=== PATIENT | male | born 1935 | race Caucasian/White ===

== ENCOUNTER 2016-08-27 15:11 | Emergency (ER) | payer MEDICARE ==
[2016-08-27] MEDS ORDERED: Bicillin LA 1.2 MILLION UNITS/2 ML SYRINGE ONE (16:10)
--- NOTE | 2016-08-27 16:10 | RAD ---
CHEST TWO VIEWS 08/27/16 HISTORY: Cough. COMPARISON: 04/15/16 FINDINGS: The cardiac silhouette is enlarged. Pulmonary vasculature remains slightly engorged. Mediastinum is midline with aortic calcification. Lungs are hyperinflated. Scarring at the right mid chest and at e ach lung base is similar in appearance to the prior study. There is no confluent air space consolida tion, pneumothorax or pleural fluid evident. IMPRESSION: 1. COPD. 2. Atherosclerosis. 3. Cardiomegaly. POS: RONNI
--- NOTE | 2016-08-27 16:18 | ERRECORD ---
[facility] EMERGENCY RECORD HPI GENERAL (15:59 ABUS) CHIEF COMPLAINT: Patient presents for evaluation of Sinus drainage. HISTORIAN: History provided by patient, 80 yr old M with PMH of Aflutter, HLD, HTN, KARY, GERD, Chronic Resp Failure on home O2 2-3 L per NC who comes in at the recommendation of his doctor for sinus drainage. He denies any F, N/V, D, rash, swelling, edeam, CP, CT, SOB. MECHANISM OF INJURY: Unknown mechanism. LOCATION: Symptoms are localized, most severe to Sinus. QUALITY: Pain is dull in nature, described as aching. SEVERITY: Currently symptoms are mild, Current severity of pain rated as 0/10. TIME COURSE: Gradual onset of symptoms, 2, days priror to arrival, There has been no change in the patient's symptoms over time. ASSOCIATED WITH: No associated symptoms. EXACERBATED BY: Patient's condition exacerbated by nothing. RELIEVED BY: Patient's condition relieved by nothing. ROS (16:01 ABUS) CONSTITUTIONAL: Negative constitutional review of systems, Historian denies chills, denies fever. ENT: Historian reports rhinorrhea, reports sinus pain, denies sore throat. CARDIOVASCULAR: Negative cardiovascular review of systems, Historian denies chest pain, denies palpitations. RESPIRATORY: Negative respiratory review of systems, Historian denies cough, denies shortness of breath. GI: Negative gastrointestinal review of systems, Historian denies abdominal pain, denies constipation, denies diarrhea, denies nausea, denies vomiting. MUSCULOSKELETAL: Negative musculoskeletal review of systems, Historian denies back pain, denies fall, denies injury, denies neck pain. SKIN: Negative skin review of systems, Historian denies rash, denies skin changes. NEUROLOGIC: Negative neurologic review of systems, Historian denies headache. PAST MEDICAL HISTORY (15:28 [facility]) MEDICAL HISTORY: Flu vaccine up to date, Tetanus immunization up to date, Pneumococcal vaccine up to date, Past medical history includes cardiac history, arrhythmia, A-FLUTTER, Past medical history includes history of hyperlipidemia, history of hypertension. PLEURAL EFFUSIONS, ANEMIA- IRON DEFECIENCY., Past medical history includes history of hypertension, which has been treated, Patient is compliant. HEARING &a-1R&a+25V*p+0X*x2475O*c202B*c15G*c2P*p-0X&a-25V&a+1R Name: Lee Gomez : 1935 M80 MedRec: [id number] AcctNum: [id number] Prepared: TueAug 27, 2016 16:34 by Interface Page 1 of 3 pMD [facility] EMERGENCY RECORD LOSS-BILATERAL, CHRONIC RESP FAILURE WTIH HYPOXIA, COPD, GERD, B-12 DEFICIENCY, ABD HERNIA, DIZZINESS, DEMENTIA, CHF. MALE SURGICAL HISTORY: LEFT SALIVA GLAND REMOVAL, RIGHT THORACIC SURGERY. PSYCHIATRIC HISTORY: No previous psychiatric history. SOCIAL HISTORY: Social History includes lives with , Patient denies alcohol use, Patient denies drug use, Patient is a former tobacco user. KNOWN ALLERGIES NKDA No Known Drug Allergies (Unconfirmed) CURRENT MEDICATIONS (15:25 CJEF) Unknown VITAL SIGNS VITAL SIGNS: BP: 99/51, Pulse: 69, Resp: 18, Temp: 97.8 (Tympanic), Pain: 0, O2 sat: 90 on 2L Oxygen, Time: 08/27/2016 15:21. (15:21 CJEF) BP: 97/64, Pulse: 64, Resp: 20, Pain: 0, O2 sat: 97 on 2L Oxygen, Time: 08/27/2016 15:39. (15:39 CJEF) BP: 102/57, Pulse: 65, Resp: 18, O2 sat: 97 on 2L Oxygen, Time: 08/27/2016 16:08. (16:08 CJEF) Temp: 97.3 (Tympanic), Pain: 0, Time: 08/27/2016 16:15. (16:15 CJEF) PHYSICAL EXAM (16:01 ABUS) CONSTITUTIONAL: Vital signs reviewed, Patient afebrile, Pulse normal, Blood pressure normal, Respiratory rate normal, Patient appears non toxic, Patient appears pain free, Patient alert and oriented to person, place and time. NECK: Neck exam normal, Neck exam included findings of normal range of motion, Trachea midline, no meningeal signs, no cervical adenopathy, no tenderness. RESPIRATORY CHEST: Respiratory and chest exam normal, Respiratory exam included findings of no respiratory distress, Breath sounds clear. CARDIOVASCULAR: Cardiovascular assessment normal, Cardiovascular exam included findings of heart rate regular rate and rhythm, Heart sounds normal. ABDOMEN MALE: Abdominal exam included findings of abdomen nontender, Bowel sounds normal, no distension, no mass, no pulsatile masses, no peritoneal signs, no rigidity, no guarding, no rebound, Rovsing's sign absent. BACK: Back exam normal, Back exam included findings of normal inspection, range of motion normal, no tenderness. NEURO: Neuro exam normal, Neuro exam findings include patient oriented to person, place and time, Speech normal, Gait normal. SKIN: Skin exam normal, Skin exam included findings of skin warm, dry, and normal in color, no rash. &a-1R&a+25V*p+0X*s8515L*c202B*c15G*c2P*p-0X&a-25V&a+1R Name: Lee Gomez : 1935 M80 MedRec: [id number] AcctNum: [id number] Prepared: TueAug 27, 2016 16:34 by Interface Page 2 of 3 pMD [facility] EMERGENCY RECORD RADIOLOGYINTERPRETATION (16:11 ABUS) CHEST: Chest films negative, no infiltrates, no pneumothorax, no hemothorax, no masses, no cardiomegaly, no effusion, no free air. HEALTHCARE ADMINISTRATION INTERNSHIP: Preliminary review of x-rays by, ED Physician, Radiologist. MEDICATION ADMINISTRATION SUMMARY Drug Name: Bicillin L-A, Dose Ordered: 1.2 million units, Route: Intramuscular, Status: Given, Time: 16:13 08/27/2016, Detailed record available in Medication Service section. DOCTOR NOTES (16:02 ABUS) TEXT: 80 yr old M with PMH of Aflutter, HLD, HTN, KARY, GERD, Chronic Resp Failure on home O2 2-3 L per NC who comes in at the recommendation of his doctor for sinus drainage. Exam: Afebrile and BP is similar o value in last note of 2016 on admission. NAD. Dx: Sinusitis, allergic rhinitis, pharyngitis, viral URI, CAP Plan: CXR. Dispo: D/c home with return precautions. PROBLEM LIST No recorded problems DIAGNOSIS (16:10 ABUS) FINAL: PRIMARY: ACUTE SINUSITIS UNSPECIFIED, ADDITIONAL: URI. PRESCRIPTION No recorded prescriptions DISPOSITION PATIENT: Disposition Type: Discharge, Disposition: *Discharge Home, Condition: Good. (16:10 ABUS) Patient left the department. (16:31 CJ) Rao: SCOTT=MD Nhan, Andres CJEF=FARZANEH Oro, Leatha &a-1R&a+25V*p+0X*[id number]*c202B*c15G*c2P*p-0X&a-25V&a+1R Name: Lee Gomez : 1935 M80 MedRec: [id number] AcctNum: [id number] Prepared: TueAug 27, 2016 16:34 by Interface Page 3 of 3 pMD MTDD
--- NOTE | 2016-08-27 16:22 | PICIS ---
[facility] EMERGENCY RECORD TRIAGE (15:24 CJEF) TRIAGE NOTES: PT REPORTS CONGESTION AND YELLOW MUCUS DISCHARGE WHEN BLOWING HIS NOSE. PT DENIES ANY OTHER SYMTOMS. PT VERY HARD OF HEARING. PT REPORTS THAT HE CALLED HIS HOME HEALTH AND TOLD THEM ABOUT THE DISCHARGE, IN WHICH THEY TOLD HIM TO COME TO THE ER,. (15:24 CJEF) PATIENT: NAME: Lee Gomez, AGE: 80, GENDER: male, : Tue1935, TIME OF GREET: TueAug 27, 2016 15:12, PREFERRED LANGUAGE: Moldovan, ETHNICITY: Not or , ECODE BILLING MAP: [facility], SSN: [id number], Zip Code: [address], KG WEIGHT: 74.84, PHONE: , , , PERSON ID: [id number], PCP: MD Torres Nanette. (15:24 CJEF) COMPLAINT: COUGHING UP MUCUS. (15:24 CJEF) ADMISSION: URGENCY: 4 Non Urgent, ADMISSION SOURCE: Home, TRANSPORT: Walk-in, BED: ED -02. (15:24 CJEF) ASSESSMENT: Assessment: YELLOW DISCHARGE WHEN BLOWING NOSE. (15:28 CJEF) PAIN: No complaint of pain. (15:28 CJEF) IMMUNIZATIONS: Flu vaccine up to date, Tetanus immunization up to date, Pneumococcal vaccine up to date. (15:28 CJEF) SIRS SCORING: Heart Rate 55-109 (0), Temp range 96.8-101.1 (0), respiratory rate 12-24 (0), Mental Status altered: no (0), Yes, Infection or Suspected Infection. (15:28 CJEF) SIRS NOTIFICATION: Yes, Infection or Suspected Infection. (15:28 CJEF) TRIAGE SCREENING: Patient denies suicidal ideation, Patient denies presence of domestic violence. (15:28 CJEF) PROVIDERS: TRIAGE NURSE: Leatha Oro RN. (15:24 CJEF) VITAL SIGNS: BP 99/51, Pulse 69, Resp 18, Temp 97.8, (Tympanic), Pain 0, O2 Sat 90, on 2L Oxygen, Time 08/27/2016 15:21. (15:21 CJEF) PREVIOUS VISIT ALLERGIES: NKDA. (15:24 CJEF) NKDA. (15:28 CJEF) KNOWN ALLERGIES NKDA No Known Drug Allergies (Unconfirmed) CURRENT MEDICATIONS (15:25 CJEF) Unknown VITAL SIGNS VITAL SIGNS: BP: 99/51, Pulse: 69, Resp: 18, Temp: 97.8 (Tympanic), Pain: 0, O2 sat: 90 on 2L Oxygen, Time: 08/27/2016 15:21. (15:21 CJEF) BP: 97/64, Pulse: 64, Resp: 20, Pain: 0, O2 sat: 97 on 2L Oxygen, Time: 08/27/2016 15:39. (15:39 CJEF) BP: 102/57, Pulse: 65, Resp: 18, O2 sat: 97 on 2L Oxygen, Time: 08/27/2016 16:08. (16:08 CJEF) Temp: 97.3 (Tympanic), Pain: 0, Time: 08/27/2016 16:15. (16:15 CJEF) &a-1R&a+25V*p+0X*q3747P*c202B*c15G*c2P*p-0X&a-25V&a+1R Name: Lee Gomez : 1935 M80 MedRec: [id number] AcctNum: [id number] Prepared: TueAug 27, 2016 16:40 by Interface Page 1 of 7 pMD [facility] EMERGENCY RECORD NURSING ASSESSMENT: ENT (15:37 CJEF) CONSTITUTIONAL: Complex assessment performed, Patient arrives ambulatory, Unsteady gait, Assistance to cart, History obtained from patient, Patient appears comfortable, Patient cooperative, Patient alert, Oriented to person, place and time, Skin warm, Skin dry, Skin normal in color, Mucous membranes pink, Mucous membranes moist, Patient is well-groomed, PT REPORTS CONGESTION AND YELLOW MUCUS DISCHARGE WHEN BLOWING HIS NOSE. PT DENIES ANY OTHER SYMTOMS. PT VERY HARD OF HEARING. PT REPORTS THAT HE CALLED HIS HOME HEALTH AND TOLD THEM ABOUT THE DISCHARGE, IN WHICH THEY TOLD HIM TO COME TO THE ER. PT ON OXYGEN AT HOME AT 2LPM AND CAME TO ER WITH HIS PORTABLE TANK. PAIN: Patient rates pain as 0 out of 10. ENT: Ear assessment findings include ear normal to inspection, Nasal assessment findings include nose normal to inspection, Congestion, bilaterally, Mouth and throat assessment findings include mouth inspection normal, Notes: PT REPORTS BLOWING HIS NOSE AND EXPELLING YELLOW DISCHARGE. RESPIRATORY/CHEST: Lungs auscultated, Breath sounds with wheezing, scattered, Respiratory assessment findings include respiratory effort easy, Respirations regular, Conversing normally, Neck and chest exam findings include trachea midline, Chest expansion equal, Chest movement symmetrical, Associated with cough, productive of, yellow sputum. NOTES: Patient tolerated procedure well. SAFETY: Side rails up, Cart/Stretcher in lowest position, Family at bedside, Call light within reach, Hospital ID band on. NURSING PROCEDURE: HEAD ESTHETICIAN (15:39 [facility]) PATIENT IDENTIFIER: Patient actively involved in identification process, Patient's identity verified by patient stating name, Patient's identity verified by patient stating date. HEAD ESTHETICIAN: Patient placed on ship boss, Heart rate: 66, showing normal sinus rhythm, Patient placed on non-invasive blood pressure monitor, Patient placed on continuous pulse oximetry, Adult/pediatric oxisensor applied. FOLLOW-UP: After procedure, alarms set and on, After procedure, patient tolerating monitoring. NOTES: Patient tolerated procedure well. SAFETY: Side rails up, Cart/Stretcher in lowest position, Family at bedside, Call light within reach, Hospital ID band on. NURSING PROCEDURE: DISCHARGE NOTE (16:31 [facility]) DISCHARGE: Patient discharged to home, ambulating without assistance, driving self, unaccompanied, Summary of Care printed/ provided, Patient requested and was provided an electronic copy of Discharge Instructions, Transition record given to patient, Discharge instructions given to patient, Simple or moderate discharge teaching performed, Medication reconciliation form given, Above person(s) &a-1R&a+25V*p+0X*u3300I*c202B*c15G*c2P*p-0X&a-25V&a+1R Name: Lee Gomez : 1935 M80 MedRec: [id number] AcctNum: [id number] Prepared: TueAug 27, 2016 16:40 by Interface Page 2 of 7 pMD [facility] EMERGENCY RECORD verbalized understanding of discharge instructions and follow-up care, Patient treated and evaluated by physician. BELONGINGS: Belongings remain with patient. NOTES: Patient tolerated procedure well. SAFETY: Side rails up, Cart/Stretcher in lowest position, Family at bedside, Call light within reach, Hospital ID band on. NURSING PROCEDURE: NURSE NOTES NURSES NOTES: Patient in no apparent distress, Patient resting quietly, Warm blanket given to patient. (15:40 CJEF) Patient in no apparent distress, Patient resting quietly, Notes: PT RESTING IN BED QUIETLY WITH NO DISTRESS NOTED. PT DENIES ANY NEEDS. (16:15 [facility]) ORDER DETAILS Order Name: XR Chest Pa & Lat STANDARD, Status: Active, Time: 15:36 08/27/2016, User: [facility], - Ordered for: MD Nhan, Andres, - Entered by: FARZANEH Oro Cassie - TueAug 27, 2016 15:36, - Quantity: 1. MEDICATION ADMINISTRATION SUMMARY Drug Name: Bicillin L-A, Dose Ordered: 1.2 million units, Route: Intramuscular, Status: Given, Time: 16:13 08/27/2016, Detailed record available in Medication Service section. MEDICATION SERVICE Bicillin L-A: Order: Bicillin L-A (penicillin G benzathine) - Dose: 1.2 million units : Intramuscular Schedule: Now Ordered by: Andres Justin MD Entered by: Andres Justin MD TueAug 27, 2016 16:09 Documented as given by: Leatha Oro RN TueAug 27, 2016 16:13 Patient, Medication, Dose, Route and Time verified prior to administration. IM antibiotic, Amount given: 1.2 MIL, Medication administered to right buttock, Patient appears Awake and alert- acceptable, Correct patient, time, route, dose and medication confirmed prior to administration, Patient advised of actions and side-effects prior to administration, Allergies confirmed and medications reviewed prior to administration, Patient tolerated procedure well, Patient in position of comfort, Side rails up, Cart in lowest position, Family at bedside. : Follow Up : Response assessment performed, No signs or symptoms of allergic reaction noted, Advised not to ambulate without assistance, Patient in position of comfort, Side rails up, Cart in lowest position, Family at bedside. (16:25 [facility]) &a-1R&a+25V*p+0X*t8631Z*c202B*c15G*c2P*p-0X&a-25V&a+1R Name: Lee Gomez : 1935 M80 MedRec: [id number] AcctNum: [id number] Prepared: TueAug 27, 2016 16:40 by Interface Page 3 of 7 pMD [facility] EMERGENCY RECORD HPI GENERAL (15:59 ABUS) CHIEF COMPLAINT: Patient presents for evaluation of Sinus drainage. HISTORIAN: History provided by patient, 80 yr old M with PMH of Aflutter, HLD, HTN, KARY, GERD, Chronic Resp Failure on home O2 2-3 L per NC who comes in at the recommendation of his doctor for sinus drainage. He denies any F, N/V, D, rash, swelling, edeam, CP, CT, SOB. MECHANISM OF INJURY: Unknown mechanism. LOCATION: Symptoms are localized, most severe to Sinus. QUALITY: Pain is dull in nature, described as aching. SEVERITY: Currently symptoms are mild, Current severity of pain rated as 0/10. TIME COURSE: Gradual onset of symptoms, 2, days priror to arrival, There has been no change in the patient's symptoms over time. ASSOCIATED WITH: No associated symptoms. EXACERBATED BY: Patient's condition exacerbated by nothing. RELIEVED BY: Patient's condition relieved by nothing. ROS (16:01 ABUS) CONSTITUTIONAL: Negative constitutional review of systems, Historian denies chills, denies fever. ENT: Historian reports rhinorrhea, reports sinus pain, denies sore throat. CARDIOVASCULAR: Negative cardiovascular review of systems, Historian denies chest pain, denies palpitations. RESPIRATORY: Negative respiratory review of systems, Historian denies cough, denies shortness of breath. GI: Negative gastrointestinal review of systems, Historian denies abdominal pain, denies constipation, denies diarrhea, denies nausea, denies vomiting. MUSCULOSKELETAL: Negative musculoskeletal review of systems, Historian denies back pain, denies fall, denies injury, denies neck pain. SKIN: Negative skin review of systems, Historian denies rash, denies skin changes. NEUROLOGIC: Negative neurologic review of systems, Historian denies headache. PAST MEDICAL HISTORY (15:28 CJ) MEDICAL HISTORY: Flu vaccine up to date, Tetanus immunization up to date, Pneumococcal vaccine up to date, Past medical history includes cardiac history, arrhythmia, A-FLUTTER, Past medical history includes history of hyperlipidemia, history of hypertension. PLEURAL EFFUSIONS, ANEMIA- IRON DEFECIENCY., Past medical history includes history of hypertension, which has been treated, Patient is compliant. HEARING &a-1R&a+25V*p+0X*k4804U*c202B*c15G*c2P*p-0X&a-25V&a+1R Name: Lee Gomez : 1935 M80 MedRec: [id number] AcctNum: [id number] Prepared: TueAug 27, 2016 16:40 by Interface Page 4 of 7 pMD [facility] EMERGENCY RECORD LOSS-BILATERAL, CHRONIC RESP FAILURE WTIH HYPOXIA, COPD, GERD, B-12 DEFICIENCY, ABD HERNIA, DIZZINESS, DEMENTIA, CHF. MALE SURGICAL HISTORY: LEFT SALIVA GLAND REMOVAL, RIGHT THORACIC SURGERY. PSYCHIATRIC HISTORY: No previous psychiatric history. SOCIAL HISTORY: Social History includes lives with , Patient denies alcohol use, Patient denies drug use, Patient is a former tobacco user. PHYSICAL EXAM (16:01 ABUS) CONSTITUTIONAL: Vital signs reviewed, Patient afebrile, Pulse normal, Blood pressure normal, Respiratory rate normal, Patient appears non toxic, Patient appears pain free, Patient alert and oriented to person, place and time. NECK: Neck exam normal, Neck exam included findings of normal range of motion, Trachea midline, no meningeal signs, no cervical adenopathy, no tenderness. RESPIRATORY CHEST: Respiratory and chest exam normal, Respiratory exam included findings of no respiratory distress, Breath sounds clear. CARDIOVASCULAR: Cardiovascular assessment normal, Cardiovascular exam included findings of heart rate regular rate and rhythm, Heart sounds normal. ABDOMEN MALE: Abdominal exam included findings of abdomen nontender, Bowel sounds normal, no distension, no mass, no pulsatile masses, no peritoneal signs, no rigidity, no guarding, no rebound, Rovsing's sign absent. BACK: Back exam normal, Back exam included findings of normal inspection, range of motion normal, no tenderness. NEURO: Neuro exam normal, Neuro exam findings include patient oriented to person, place and time, Speech normal, Gait normal. SKIN: Skin exam normal, Skin exam included findings of skin warm, dry, and normal in color, no rash. EVENTS TRANSFER: Triage to Emergency Main ED -02. (TueAug 27, 2016 15:24 CJEF) Removed from Emergency Main ED -02. (16:31 CJEF) RADIOLOGYINTERPRETATION (16:11 ABUS) CHEST: Chest films negative, no infiltrates, no pneumothorax, no hemothorax, no masses, no cardiomegaly, no effusion, no free air. SCRUB TECHNICIAN: Preliminary review of x-rays by, ED Physician, Radiologist. DOCTOR NOTES (16:02 ABUS) TEXT: 80 yr old M with PMH of Aflutter, HLD, HTN, KARY, GERD, Chronic Resp Failure on home O2 2-3 L per NC who comes in at the recommendation of his doctor for sinus drainage. Exam: Afebrile and BP is similar o value in last note of 2015 on &a-1R&a+25V*p+0X*r3866C*c202B*c15G*c2P*p-0X&a-25V&a+1R Name: Lee Gomez : 1935 M80 MedRec: [id number] AcctNum: [id number] Prepared: TueAug 27, 2016 16:40 by Interface Page 5 of 7 pMD [facility] EMERGENCY RECORD admission. NAD. Dx: Sinusitis, allergic rhinitis, pharyngitis, viral URI, CAP Plan: CXR. Dispo: D/c home with return precautions. PROBLEM LIST No recorded problems DIAGNOSIS (16:10 ABUS) FINAL: PRIMARY: ACUTE SINUSITIS UNSPECIFIED, ADDITIONAL: URI. DISPOSITION PATIENT: Disposition Type: Discharge, Disposition: *Discharge Home, Condition: Good. (16:10 ABUS) Patient left the department. (16:31 CJEF) INSTRUCTION (16:11 ABUS) DISCHARGE: SINUSITIS, ABX TX. FOLLOWUP: MD Brian, Elin, [facility], [facility], [address], [place] [address], [place], , Follow up with Primary Care Physician in 2-3 days. SPECIAL: As discussed in the ER before you left, please follow up with your primary care doctor or call the referral made for you here in the ED today to establish outpatient follow up for your medical care. Please come back sooner if you start to develop fever, worsening pain, vomiting, chest pain, shortness of breath, or symptoms that are new or symptoms the concern you. PRESCRIPTION No recorded prescriptions IMAGING *DISCHARGE INSTRUCTIONS RECEIPT: Image captured from scanner. (16:32 [facility]) *SUPPLY CHARGE SHEET: Image captured from scanner. (16:33 [facility]) ADMIN DIGITAL SIGNATURE: MD Justin Anthony. (16:11 ABUS) MD Justin Anthony. (16:12 ABUS) RESULTS (16:18 CJEF) RADIOLOGY: XR Chest Pa & Lat STANDARD Observe DT: TueAug 27, 2016 15:40, CXR2 CHEST TWO VIEWS 08/27/16 HISTORY: Cough. &a-1R&a+25V*p+0X*r3389D*c202B*c15G*c2P*p-0X&a-25V&a+1R Name: Lee Gomez : 1935 M80 MedRec: [id number] AcctNum: [id number] Prepared: TueAug 27, 2016 16:40 by Interface Page 6 of 7 pMD [facility] EMERGENCY RECORD COMPARISON: 04/15/16 FINDINGS: The cardiac silhouette is enlarged. Pulmonary vasculature remains slightly engorged. Mediastinum is midline with aortic calcification. Lungs are hyperinflated. Scarring at the right mid chest and at e ach lung base is similar in appearance to the prior study. There is no confluent air space consolida tion, pneumothorax or pleural fluid evident. IMPRESSION: 1. COPD. 2. Atherosclerosis. 3. Cardiomegaly. POS: [facility] . Rao: SCOTT=MD Justin Anthony CJEF=FARZANEH Oro, Leatha &a-1R&a+25V*p+0X*s9802E*c202B*c15G*c2P*p-0X&a-25V&a+1R Name: Lee Gomez : 1935 M80 MedRec: [id number] AcctNum: [id number] Prepared: TueAug 27, 2016 16:40 by Interface Page 7 of 7 pMD MTDD
== END 2016-08-27 16:32 | disposition home or self-care (01) ==
LOC: MADERS 15:11
DX: J01.90 Acute sinusitis, unspecified (principal); J06.9 Acute upper respiratory infection, unspecified; E78.5 Hyperlipidemia, unspecified; I10 Essential (primary) hypertension; J44.9 Chronic obstructive pulmonary disease, unspecified; K21.9 Gastro-esophageal reflux disease without esophagitis
CPT/HCPCS: 71020; 96372; J0561